=== PATIENT | male | born 1955 | race Caucasian/White ===

== ENCOUNTER 2019-07-21 08:28 | Outpatient (CLI) | payer OTHER ==
[2019-07-21] MEDS ORDERED: IOVERSOL 320 100 ML VIAL IVP ONE ×2 (08:40→09:54)
[2019-07-21] MEDS ORDERED: IOVERSOL 320 50 ML VIAL ONE (08:40)
[2019-07-21 09:15] LABS: CREATININE 1.2 mg/dL (0.6-1.2)
[2019-07-21] MEDS ORDERED: IOVERSOL 320 50 ML VIAL PO ONE (09:54)
--- NOTE | 2019-07-22 14:44 | CT Report ---
Reason: RT LT LOWER QUAD PAIN Procedure Date: 07/21/2019 Accession Number: [id number] / [id number] Procedure: CT - Abdomen/Pelvis W CPT Code: Final Report FULL RESULT: EXAM: CT ABDOMEN AND PELVIS WITH IV CONTRAST EXAM DATE: 07/21/2019. CLINICAL HISTORY: Right and left lower abdominal pain. COMPARISONS: None. TECHNIQUE: Routine helical CT imaging was performed through the abdomen and pelvis. IV contrast: 90 cc of Optiray 320. Enteric contrast: Positive oral. Reconstructions: Coronal and sagittal. In accordance with CT protocol optimization, one or more of the following dose reduction techniques were utilized for this exam: automated exposure control, adjustment of mA and/or KV based on patient size, or use of iterative reconstructive technique. FINDINGS: Lung Bases: The lower lungs are clear. No pleural or pericardial effusion. 4 cm hiatal hernia. Liver: 19 mm left lobe cyst. No solid mass. Gallbladder/Bile Ducts: Normal. No bile duct dilatation. Spleen: Normal. Pancreas: Normal. Adrenal Glands: 12 mm left adrenal nodule, averaging 30 HU post contrast.. Kidneys: 18 mm right renal cyst. No hydronephrosis or hydroureter. No calculi. Peritoneal Cavity/Bowel: No bowel dilatation. Diverticulosis of the descending colon. No sign of diverticulitis. Postsurgical changes of gastric bypass. No adenopathy, fluid collections, free air or inflammatory changes. The appendix is well visualized and normal. Pelvic Organs: The urinary bladder appears normal. The prostate is enlarged, 5.1 x 4.5 x 4.4 cm. No adenopathy. No fluid collections. Probable small fat-containing left inguinal hernia. Vasculature: Atherosclerosis of the aorta and branch arteries. No aneurysm. The hepatic artery arises from the aorta, the splenic artery from the superior mesenteric artery. Bones: Degenerative changes of the spine. Benign hemangioma in the T11 and T12 vertebral bodies. IMPRESSION: No acute abnormality. Small hiatal hernia. Postsurgical changes of gastric bypass. Diverticulosis of the descending colon, no sign of diverticulitis. Probable small fat-containing direct left inguinal hernia. This could be further evaluated with ultrasound. Nonspecific prostatic enlargement. Other findings as described above. [facility]
== END 2019-07-21 08:29 | disposition home or self-care (01) ==
LOC: DI 08:28
PROVIDERS: ATTEND Internal Medicine
DX: R10.31 Right lower quadrant pain (principal); R10.32 Left lower quadrant pain; R79.89 Other specified abnormal findings of blood chemistry; K44.9 Diaphragmatic hernia without obstruction or gangrene; K57.30 Diverticulosis of large intestine without perforation or abscess without bleeding; N40.0 Benign prostatic hyperplasia without lower urinary tract symptoms
CPT/HCPCS: 36415; 74177; 82565; Q9967

== ENCOUNTER 2021-05-06 10:47 | Outpatient (CLI) | payer OTHER ==
[2021-05-06 11:10] LABS: BASOPHILS # (AUTO) 0.1 10^3/uL (0.0-0.1); BASOPHILS % (AUTO) 1.4 %; EOSINOPHILS # (AUTO) 0.1 10^3/uL (0.0-0.7); EOSINOPHILS % (AUTO) 2.5 %; HCT - HEMATOCRIT 45.5 % (42.0-52.0); HGB - HEMOGLOBIN 15.3 g/dL (14.0-18.0); LYMPHOCYTES # (AUTO) 1.5 10^3/uL (1.5-3.5); LYMPHOCYTES % (AUTO) 26.9 %; MEAN CORPUSCULAR HEMOGLOBIN 30.1 pg (27.0-31.0); MEAN CORPUSCULAR HGB CONC 33.6 g/dL (32.0-36.0); MEAN CORPUSCULAR VOLUME 89.6 fL (80.0-94.0); MEAN PLATELET VOLUME 9.5 fL (7.4-11.4); MONOCYTES # (AUTO) 0.6 10^3/uL (0.0-1.0); MONOCYTES % (AUTO) 10.7 %; NEUTROPHILS # (AUTO) 3.3 10^3/uL (1.5-6.6); NEUTROPHILS % (AUTO) 58.3 %; PLT - PLATELET COUNT 275 10^3/uL (130-450); RED BLOOD COUNT 5.08 10^6/uL (4.70-6.10); RED CELL DISTRIBUTION WIDTH 12.9 % (12.0-15.0); WHITE BLOOD COUNT 5.7 x10^3/uL (4.8-10.8)
== END 2021-05-06 10:48 | disposition home or self-care (01) ==
LOC: LAB 10:47
DX: R51.9 Headache, unspecified (principal)
CPT/HCPCS: 36415; 82565; 85025; 85651

== ENCOUNTER 2022-07-17 11:13 | Outpatient (CLI) | payer OTHER ==
--- NOTE | 2022-07-17 12:42 | XRAY Report ---
PROCEDURE: Knee 3 View LT INDICATIONS: PAIN IN LEFT KNEE TECHNIQUE: 3 views of the left knee(s) were acquired. COMPARISON: None. FINDINGS: Bones: No fractures or dislocations. Mild to moderate tricompartmental osteoarthritis is seen with j oint space narrowing, subchondral sclerosis and marginal osteophyte formation most notable in medial femoral tibial compartment. No suspicious bony lesions. Soft tissues: No joint effusion. No suspicious soft tissue calcifications. IMPRESSION: Mild to moderate tricompartmental osteoarthritis more notably in medial femoral tibial c ompartment. No fracture or dislocation. No significant joint effusion. Reviewed by: López Dunham MD on 07/17/2022 12:41 PM PST Approved by: López Dunham MD on 07/17/2022 12:41 PM PST Station ID: [id number]
--- NOTE | 2022-07-17 12:43 | XRAY Report ---
PROCEDURE: Hip w/Pelvis 2-3V LT INDICATIONS: HIP PAIN TECHNIQUE: AP pelvis with lateral view(s) of the left hip(s). COMPARISON: None. FINDINGS: Bones: No fractures or dislocations. Mild to moderate bilateral hip joint osteoarthritic changes are seen. No evidence of avascular necrosis of femoral head. Pelvic ring appears intact. No suspicious bony lesions. Soft tissues: The visualized bowel gas pattern is normal. No suspicious soft tissue calcifications. IMPRESSION: Mild to moderate bilateral hip joint osteoarthritis. No fracture or dislocation. No evide nce of avascular necrosis. Reviewed by: López Dunham MD on 07/17/2022 12:42 PM PST Approved by: López Dunham MD on 07/17/2022 12:42 PM PST Station ID: [id number]
--- NOTE | 2022-07-17 16:59 | XRAY Report ---
PROCEDURE: Elbow 3 View LT INDICATIONS: ELBOW PAIN TECHNIQUE: 3 views of the elbow were acquired. COMPARISON: None FINDINGS: Bones: No fractures or dislocations. No suspicious bony lesions. Soft tissues: No elbow joint effusion. No suspicious soft tissue calcifications. IMPRESSION: Normal left elbow radiographs Reviewed by: Heath Coleman MD on 07/17/2022 3:58 PM [place] Approved by: Heath Coleman MD on 07/17/2022 3:58 PM [place] Station ID: [id number]
--- NOTE | 2022-07-17 20:09 | XRAY Report ---
PROCEDURE: Wrist 3 View LT INDICATIONS: LEFT WRIST PAIN TECHNIQUE: 3 views of the wrist were acquired. COMPARISON: None. FINDINGS: Bones: No fractures or dislocations. No suspicious bony lesions. Soft tissues: No suspicious soft tissue calcifications. IMPRESSION: No acute osseous abnormality. Consider follow-up radiographs in 10-14 days. Reviewed by: Chad Eid MD on 07/17/2022 8:07 PM [facility] Approved by: Chad Eid MD on 07/17/2022 8:07 PM [facility] Station ID: [id number]
--- NOTE | 2022-07-17 20:11 | XRAY Report ---
PROCEDURE: Shoulder 3 View LT INDICATIONS: SHOULDER PAIN TECHNIQUE: 3 views of the shoulder were acquired. COMPARISON: None. FINDINGS: Bones: Left shoulder arthroplasty. No periprosthetic lucency to suggest loosening or infection. No f ractures or dislocations. Moderate degenerative change at the AC joint. Mild inferior spurring. No hunt spicious bony lesions. Visualized ribs appear intact. Soft tissues: No suspicious soft tissue calcifications. IMPRESSION: Expected appearance of the left shoulder arthroplasty. Reviewed by: Chad Eid MD on 07/17/2022 8:09 PM PST Approved by: Chad Eid MD on 07/17/2022 8:09 PM PST Station ID: [id number]
== END 2022-07-17 11:14 | disposition home or self-care (01) ==
LOC: DI 11:13
PROVIDERS: ATTEND Internal Medicine
DX: M17.12 Unilateral primary osteoarthritis, left knee (principal); M16.0 Bilateral primary osteoarthritis of hip; M25.532 Pain in left wrist; M25.522 Pain in left elbow; M25.512 Pain in left shoulder; Z96.612 Presence of left artificial shoulder joint

== ENCOUNTER 2023-04-24 10:29 | Outpatient (CLI) | payer OTHER, MEDICARE ==
[2023-04-24 17:58] LABS: BASOPHILS # (AUTO) 0.1 10^3/uL (0.0-0.1); BASOPHILS % (AUTO) 1.3 %; EOSINOPHILS # (AUTO) 0.1 10^3/uL (0.0-0.7); HCT - HEMATOCRIT 41.6 % (42.0-52.0); HGB - HEMOGLOBIN 13.4 g/dL (14.0-18.0); LYMPHOCYTES # (AUTO) 1.3 10^3/uL (1.5-3.5); LYMPHOCYTES % (AUTO) 23.9 %; MEAN CORPUSCULAR HEMOGLOBIN 28.2 pg (27.0-31.0); MEAN CORPUSCULAR HGB CONC 32.2 g/dL (32.0-36.0); MEAN CORPUSCULAR VOLUME 87.6 fL (80.0-94.0); MEAN PLATELET VOLUME 10.8 fL (7.4-11.4); MONOCYTES # (AUTO) 0.5 10^3/uL (0.0-1.0); MONOCYTES % (AUTO) 8.8 %; NEUTROPHILS # (AUTO) 3.5 10^3/uL (1.5-6.6); PLT - PLATELET COUNT 332 10^3/uL (130-450); RED BLOOD COUNT 4.75 10^6/uL (4.70-6.10); RED CELL DISTRIBUTION WIDTH 13.4 % (12.0-15.0); WHITE BLOOD COUNT 5.4 x10^3/uL (4.8-10.8)
[2023-04-24 18:16] LABS: PSA TOTAL 1.07 ng/mL (0.000-2.000)
[2023-04-24 18:19] LABS: ALBUMIN 4.1 g/dL (3.2-5.5); ALBUMIN/GLOBULIN RATIO 1.6 (1.0-2.2); ALKALINE PHOSPHATASE 115 IU/L (42-121); ALT ALANINE AMINOTRANSFERASE 25 IU/L (10-60); AST ASPARTATE AMINOTRANSFERASE 22 IU/L (10-42); BILIRUBIN,TOTAL 0.4 mg/dL (0.2-1.0); BUN - BLOOD UREA NITROGEN 11 mg/dL (6-20); CALCIUM 9.3 mg/dL (8.5-10.3); CARBON DIOXIDE - CO2 26 mmol/L (21-32); CHLORIDE 108 mmol/L (101-111); CHOL/HDL RATIO 4.4 (<5.0); CHOLESTEROL 194 mg/dL; CREATININE 0.9 mg/dL (0.6-1.3); GFR - MDRD 84 (>89); GLUCOSE 93 mg/dL (74-104); HDL CHOLESTEROL 44 mg/dL; LDL CHOLESTEROL,CALCULATED 125 mg/dL; LDL/HDL RATIO 2.8 (<3.6); SODIUM 142 mmol/L (135-145); TOTAL PROTEIN 6.7 g/dL (6.4-8.9); TRIGLYCERIDES 125 mg/dL (48-352); VLDL CHOLESTEROL 25 mg/dL
[2023-04-24 18:26] LABS: THYROID STIMULATING HORMONE 0.98 uIU/mL (0.34-5.60)
== END 2023-04-24 10:30 | disposition home or self-care (01) ==
LOC: LAB.N 10:29
PROVIDERS: ATTEND Internal Medicine
DX: I10 Essential (primary) hypertension (principal); N40.0 Benign prostatic hyperplasia without lower urinary tract symptoms; E78.5 Hyperlipidemia, unspecified; Z79.899 Other long term (current) drug therapy
CPT/HCPCS: 36415; 80053; 80061; 82306; 83721; 84153; 84443; 85025

== ENCOUNTER 2023-11-02 12:03 | Outpatient (CLI) | payer OTHER ==
--- NOTE | 2023-11-02 13:55 | MRI Report ---
PROCEDURE: Lumbar Spine WO INDICATIONS: BACK PAIN TECHNIQUE: Noncontrast sagittal T1 spin echo and T2 fast echo, sagittal STIR, axial T1 and T2 fast spin echo thr ough the lumbar spine. In cases with scoliosis, additional coronal T2 fast spin echo may be performe d. COMPARISON: None. FINDINGS: Image quality: Excellent. Alignment and Curvature: Straightening of the normal lumbar lordosis. Bone Marrow: Modic type I degenerative endplate changes at the inferior endplate of L4. Modic type I I endplate changes at L5-S1. T11 and T12 vertebral hemangiomas. Marrow is of normal overall signal. No acute vertebral body compression fractures. Spinal Cord: Conus medullaris terminates at the L1-L2 level. Visualized cord demonstrates normal si gnal and size. Paraspinous Soft Tissues: No paravertebral masses. T12-L1: Normal in appearance. L1-L2: Normal in appearance. L2-L3: Disc desiccation and mild disc bulge. Facet arthropathy and thickening of ligamenta flava. No central canal stenosis. Mild bilateral neuroforaminal stenosis. L3-L4: Disc desiccation and mild disc bulge. Facet arthropathy and thickening of ligamentum flavum. No central canal stenosis. Mild bilateral neuroforaminal stenosis. L4-L5: Disc desiccation and mild disc bulge with a right subarticular disc protrusion. Facet arthro gabe and thickening of ligamentum flavum. No central canal stenosis. Mild bilateral neuroforaminal s tenosis. L5-S1: Severe disc desiccation and height loss. Diffuse disc bulge with posterior annular tear. Fac et arthropathy. No central canal stenosis. Moderate left and mild right neuroforaminal stenosis. IMPRESSION: 1.Multilevel degenerative changes of the lumbar spine as described above. 2.No significant central canal stenosis. 3.Moderate left neuroforaminal stenosis at L5-S1. Mild multilevel neuroforaminal stenosis at other le vels. Reviewed by: David Oneill MD on 11/02/2023 1:54 PM PDT Approved by: David Oneill MD on 11/02/2023 1:54 PM PDT Station ID: [id number]
== END 2023-11-02 12:04 | disposition home or self-care (01) ==
LOC: DI 12:03
PROVIDERS: ATTEND Internal Medicine
DX: M51.36 Other intervertebral disc degeneration, lumbar region (principal); M48.061 Spinal stenosis, lumbar region without neurogenic claudication; M47.816 Spondylosis without myelopathy or radiculopathy, lumbar region; M51.37 Other intervertebral disc degeneration, lumbosacral region; M48.07 Spinal stenosis, lumbosacral region; M47.817 Spondylosis without myelopathy or radiculopathy, lumbosacral region